=== PATIENT | female | born 1930 | race Caucasian/White ===

== ENCOUNTER 2018-02-18 22:54 | Inpatient (IN) | payer MEDICARE, BC ==
[2018-02-18] MEDS: SUCCINYLCHOLINE CHLORIDE 100 MG/5 ML SYG IV (23:06)
[2018-02-18] MEDS ORDERED: NORepinephrine 8MG/250 ML (PMX 250 ML IV (23:21)
[2018-02-18] MEDS ORDERED: PROPOFOL 100 ML (23:22)
[2018-02-18] MEDS: PROPOFOL 100 ML IV (23:30)
[2018-02-18] MEDS: NORepinephrine 8MG/250 ML (PMX 250 ML IV (23:40)
[2018-02-18 23:47] LABS: WHITE BLOOD COUNT 12.6 10^3/ul (4.8-10.8)
[2018-02-18 23:47] LABS: ABNORMAL IP MESSAGE 1; HEMATOCRIT 32.9 % (37.0-47.0); HEMOGLOBIN 11.2 g/dl (12.0-16.0); MEAN CORPUSCULAR HEMOGLOBIN 31.5 pg (29.0-33.0); MEAN CORPUSCULAR VOLUME 92.4 fl (82.0-101.0); PLATELET COUNT 394 10^3/UL (140-415); RED BLOOD COUNT 3.56 10^6/ul (4.20-5.40); RED CELL DISTRIBUTION WIDTH 13.1 % (11.5-14.5)
[2018-02-18 23:53] LABS: ADD MAN DIFF? YES; MEAN PLATELET VOLUME 9.8 fl (7.4-10.4); POSITIVE DIFF @See below
[2018-02-19] MEDS: SODIUM CHLORIDE 0.9% 1L BAG IV* (00:01)
[2018-02-19] MEDS: CEFEPIME 2GM/50 ML (PMX) 50 ML IVPB (00:01)
[2018-02-19 00:02] LABS: ALANINE AMINOTRANSFERASE 23 IU/L (13-69); ALBUMIN 3.7 g/dl (3.3-4.9); ALBUMIN/GLOBULIN RATIO 0.97; ALKALINE PHOSPHATASE 52 IU/L (42-121); ANION GAP 16 (5-13); ASPARTATE AMINO TRANSFERASE 51 IU/L (15-46); BILIRUBIN,INDIRECT 0.2 mg/dl (0-1.1); BILIRUBIN,TOTAL 0.2 mg/dl (0.2-1.3); BLOOD UREA NITROGEN 18 mg/dl (7-20); CALCIUM 9.5 mg/dl (8.4-10.2); CARBON DIOXIDE 27 mmol/L (21-31); CHLORIDE 89 mmol/L (97-110); CREATININE 0.63 mg/dl (0.44-1.00); GLUCOSE 203 mg/dl (70-220); LIPASE 20 U/L (23-300); POTASSIUM 3.3 mmol/L (3.5-5.1); SODIUM 132 mmol/L (135-144); TOTAL PROTEIN 7.5 g/dl (6.1-8.1)
[2018-02-19 00:03] LABS: INR 1.15; PARTIAL THROMBOPLASTIN TIME 33.2 Sec (23.0-35.0); PROTIME 14.8 Sec (11.9-14.9); PT RATIO 1.2
[2018-02-19] MEDS: PROPOFOL 100 ML IV ×3 (00:06→10:34)
[2018-02-19 00:21] LABS: AADO2 Arterial 463.7 mmHg (7.0-24.0); Allen Test ACCEPTAB; Arterial Base Excess -1.7 mmol/L (-3.0-3); Arterial Blood Gas Oxygen Sat 99.2 mmHG (95.0-100.0); Arterial COHb 0.4 % (0.0-3.0); Arterial Fraction of Oxyhgb 98.5 % (93.0-99.0); Arterial MetHb 0.3 % (0.0-1.5); Arterial pCO2 50.8 mmhg (35-45); MODE VENT - AC; Site Right Radial; TROPONIN-I 0.669 ng/ml (0.000-0.120)
[2018-02-19 00:26] LABS: ANISOCYTOSIS 1+ (0-0); BAND NEUTROPHILS #M 3.1 10^3/ul (0.0-0.6); BAND NEUTROPHILS % (M) 25 % (0-4); ERYTHROBLAST% (NRBC) (M) 1 % (0-0); LYMPHOCYTES % (M) 8 % (15-51); MONOCYTE #M 1.3 10^3/ul (0.3-0.9); MONOCYTES % (M) 11 % (0-11); PLATELET ESTIMATE NORMAL; POLYCHROMASIA 2+ (0-0); SEG NEUT #M 7.4 10^3/ul (1.6-7.5); SEGMENTED NEUTROPHILS (M) % 56 % (39-77); SMUDGE%M 30 % (0-0)
[2018-02-19] MEDS: VANCOMYCIN 1 GM (PMX) 250 ML IVPB (00:53)
[2018-02-19 01:01] LABS: ERYTHROCYTE SEDIMENTATION RATE 100 mm/Hr (0-30)
[2018-02-19 01:07] LABS: ADD UMIC YES; UR AMORPHOUS CRYSTAL MODERATE /HPF (NONE SEEN); UR ASCORBIC ACID 40 mg/dL (NEGATIVE); UR BACTERIA MANY /HPF (NONE SEEN); UR BILIRUBIN (Dip) NEGATIVE (NEGATIVE); UR BLOOD (Dip) 1+ mg/dL (NEGATIVE); UR CLARITY CLOUDY (CLEAR); UR COLOR AMBER (YELLOW); UR GLUCOSE (Dip) 1+ mg/dL (NEGATIVE); UR HYALINE CAST FEW /HPF (NONE SEEN); UR KETONES (Dip) NEGATIVE (NEGATIVE); UR LEUKOCYTE ESTERASE (Dip) NEGATIVE Leu/ul (NEGATIVE); UR MUCUS FEW /HPF (NONE SEEN); UR NITRITE (Dip) NEGATIVE (NEGATIVE); UR RBC 1 /HPF (0-5); UR SPECIFIC GRAVITY (Dip) 1.014 (1.003-1.030); UR SQUAMOUS EPITHELIAL CELL FEW /HPF (FEW); UR TOTAL PROTEIN (Dip) 1+ mg/dl (NEGATIVE); UR UROBILINOGEN (Dip) 2+ mg/dL (NEGATIVE); UR WBC 8 /HPF (0-5)
[2018-02-19] MEDS: MIDAZOLAM 1 MG/ML 2 ML INJ IV (01:30)
[2018-02-19] MEDS ORDERED: ALBUTEROL HFA 8 GM INHALER INH (01:30)
[2018-02-19] MEDS ORDERED: IPRATROPIUM (HFA) 12.9 GM INHALER INH (01:30)
[2018-02-19] MEDS ORDERED: LORAZEPAM 4 MG/ML VIAL IV (01:30)
[2018-02-19] MEDS ORDERED: ONDANSETRON 4 MG INJ IV (01:30)
[2018-02-19 03:53] LABS: LACTIC ACID 1.8 mmol/L (0.5-2.0)
[2018-02-19] MEDS: DEXTROSE 5%-0.45% NACL 1,000 ML IV ×2 (05:41→18:25)
[2018-02-19 06:17] LABS: WHITE BLOOD COUNT 10.2 10^3/ul (4.8-10.8)
[2018-02-19 06:17] LABS: ABNORMAL IP MESSAGE 1; HEMATOCRIT 30.6 % (37.0-47.0); HEMOGLOBIN 10.6 g/dl (12.0-16.0); MEAN CORPUSCULAR HEMOGLOBIN 31.7 pg (29.0-33.0); MEAN CORPUSCULAR HGB CONC 34.6 g/dl (32.0-37.0); MEAN CORPUSCULAR VOLUME 91.6 fl (82.0-101.0); MEAN PLATELET VOLUME 9.7 fl (7.4-10.4); NUCLEATED RED BLOOD CELLS% 0.2 /100WBC (0.0-0.0); PLATELET COUNT 364 10^3/UL (140-415); RED BLOOD COUNT 3.34 10^6/ul (4.20-5.40); RED CELL DISTRIBUTION WIDTH 13.2 % (11.5-14.5)
[2018-02-19 06:37] LABS: CREATINE KINASE 166 IU/L (23-200); POSITIVE DIFF @See below
[2018-02-19 06:39] LABS: ADD MAN DIFF? YES
[2018-02-19 06:50] LABS: ALANINE AMINOTRANSFERASE 31 IU/L (13-69); ALBUMIN 2.9 g/dl (3.3-4.9); ALBUMIN/GLOBULIN RATIO 0.85; ALKALINE PHOSPHATASE 40 IU/L (42-121); ANION GAP 10 (5-13); ASPARTATE AMINO TRANSFERASE 38 IU/L (15-46); BILIRUBIN,INDIRECT 0.1 mg/dl (0-1.1); BILIRUBIN,TOTAL 0.1 mg/dl (0.2-1.3); BLOOD UREA NITROGEN 20 mg/dl (7-20); CALCIUM 8.5 mg/dl (8.4-10.2); CARBON DIOXIDE 27 mmol/L (21-31); CHLORIDE 99 mmol/L (97-110); CK INDEX 2.4; CK-MB 3.98 ng/ml (0.0-2.4); CREATININE 0.59 mg/dl (0.44-1.00); GLUCOSE 128 mg/dl (70-220); POTASSIUM 3.1 mmol/L (3.5-5.1); SODIUM 136 mmol/L (135-144); TOTAL PROTEIN 6.3 g/dl (6.1-8.1)
[2018-02-19 06:57] LABS: TROPONIN-I 0.578 ng/ml (0.000-0.120)
[2018-02-19] MEDS: NORepinephrine 8MG/250 ML (PMX 250 ML IV ×2 (07:09→19:41)
[2018-02-19 07:10] LABS: THYROID STIMULATING HORMONE 0.666 MIU/L (0.465-4.680)
[2018-02-19] MEDS: FAMOTIDINE 20 MG INJ IV (08:25)
[2018-02-19] MEDS: METHIMAZOLE 5 MG TAB PO ×2 (08:26→21:16)
[2018-02-19] MEDS: CEFEPIME 1GM/50 ML (PMX) 50 ML IVPB ×2 (08:26→21:16)
[2018-02-19] MEDS: ENOXAPARIN 40 MG/0.4 ML SYG SC (08:27)
[2018-02-19] MEDS: FENOFIBRATE 145 MG TAB PO (08:28)
[2018-02-19 08:55] LABS: ANISOCYTOSIS 2+ (0-0); BAND NEUTROPHILS #M 4.1 10^3/ul (0.0-0.6); BAND NEUTROPHILS % (M) 41 % (0-4); ERYTHROBLAST% (NRBC) (M) 1 % (0-0); GIANT THROMBO% (M) 4 % (0-0); LYMPHOCYTES #M 1.3 10^3/ul (0.8-2.9); LYMPHOCYTES % (M) 13 % (15-51); METAMYELOCYTES #M 0.7 10^3/ul (0.0-0.0); METAMYELOCYTES %M 7 % (0-0); MONOCYTE #M 0.4 10^3/ul (0.3-0.9); MONOCYTES % (M) 4 % (0-11); MYELOCYTES #M 0.2 10^3/ul (0.0-0.0); MYELOCYTES % (M) 2 % (0-0); PLATELET ESTIMATE NORMAL; POIKILOCYTOSIS 1+ (0-0); POLYCHROMASIA 1+ (0-0); REACTIVE LYMPHOCYTES #M 0.3 10^3/ul (0.0-0.0); REACTIVE LYMPHOCYTES% (M) 3 % (0-0); SEG NEUT #M 3.5 10^3/ul (1.6-7.5); SEGMENTED NEUTROPHILS (M) % 30 % (39-77); SMUDGE%M 4 % (0-0)
[2018-02-19] MEDS: AZITHROMYCIN 500MG/NS (PMX) 250 ML IVPB (10:03)
[2018-02-19] MEDS: POTASSIUM CHLORIDE 20 MEQ POWDER FOR ORAL SOLN NGT (10:34)
[2018-02-19] MEDS ORDERED: POTASSIUM CHLORIDE 50 ML IVPB (12:00)
[2018-02-19] MEDS ORDERED: LORAZEPAM 1 MG TAB GTB (12:04)
[2018-02-19 12:26] LABS: CREATINE KINASE 208 IU/L (23-200)
[2018-02-19] MEDS: ACETAMINOPHEN 650MG/20.3ML CUP PO (12:26)
[2018-02-19] MEDS: ASPIRIN 325 MG TAB PO (12:29)
[2018-02-19 12:37] LABS: MAGNESIUM 1.8 mg/dl (1.7-2.5)
[2018-02-19 12:37] LABS: CK INDEX 1.1; CK-MB 2.36 ng/ml (0.0-2.4)
[2018-02-19 12:39] LABS: TROPONIN-I 0.572 ng/ml (0.000-0.120)
[2018-02-19] MEDS: MAGNESIUM SULFATE 2 GM/50 ML 50 ML IVPB (13:32)
[2018-02-20] MEDS: PROPOFOL 100 ML IV ×3 (02:05→17:20)
[2018-02-20] MEDS: DEXTROSE 5%-0.45% NACL 1,000 ML IV ×3 (02:08→16:23)
[2018-02-20 05:48] LABS: ABNORMAL IP MESSAGE 1; HEMATOCRIT 27.7 % (37.0-47.0); HEMOGLOBIN 9.4 g/dl (12.0-16.0); MEAN CORPUSCULAR HEMOGLOBIN 31.4 pg (29.0-33.0); MEAN CORPUSCULAR HGB CONC 33.9 g/dl (32.0-37.0); MEAN CORPUSCULAR VOLUME 92.6 fl (82.0-101.0); PLATELET COUNT 332 10^3/UL (140-415); RED BLOOD COUNT 2.99 10^6/ul (4.20-5.40); RED CELL DISTRIBUTION WIDTH 13.5 % (11.5-14.5)
[2018-02-20 05:48] LABS: WHITE BLOOD COUNT 15.2 10^3/ul (4.8-10.8)
[2018-02-20 05:53] LABS: POSITIVE DIFF @See below
[2018-02-20 05:54] LABS: ADD MAN DIFF? YES
[2018-02-20 06:11] LABS: ANION GAP 7 (5-13); BLOOD UREA NITROGEN 24 mg/dl (7-20); CALCIUM 8.8 mg/dl (8.4-10.2); CARBON DIOXIDE 28 mmol/L (21-31); CHLORIDE 100 mmol/L (97-110); CREATININE 0.52 mg/dl (0.44-1.00); GLUCOSE 127 mg/dl (70-220); MAGNESIUM 2.5 mg/dl (1.7-2.5); PHOSPHORUS 0.9 mg/dl (2.5-4.9); POTASSIUM 3.6 mmol/L (3.5-5.1); SODIUM 135 mmol/L (135-144)
[2018-02-20 06:28] LABS: CHOLESTEROL 71 mg/dl (100-200)
[2018-02-20 06:28] LABS: CHOL/HDL RATIO 2.8 RATIO; HDL CHOLESTEROL 25 mg/dl (33-92); LDL CHOLESTEROL,CALCULATED 25 mg/dl; TRIGLYCERIDES 106 mg/dl (0-149)
[2018-02-20 07:36] LABS: AADO2 Arterial 539.4 mmHg (7.0-24.0); Allen Test ACCEPTAB; Arterial Base Excess -0.7 mmol/L (-3.0-3); Arterial Blood Gas Oxygen Sat 98.3 mmHG (95.0-100.0); Arterial COHb 0.3 % (0.0-3.0); Arterial Fraction of Oxyhgb 97.7 % (93.0-99.0); Arterial HCO3 25.6 mmol/L (22.0-26.0); Arterial MetHb 0.3 % (0.0-1.5); Arterial pCO2 49.8 mmhg (35-45); MODE VENT - AC; Site Left Radial
[2018-02-20 08:30] LABS: ANISOCYTOSIS 1+ (0-0); BAND NEUTROPHILS #M 4.5 10^3/ul (0.0-0.6); BAND NEUTROPHILS % (M) 30 % (0-4); LYMPHOCYTES #M 0.6 10^3/ul (0.8-2.9); LYMPHOCYTES % (M) 4 % (15-51); MONOCYTE #M 0.3 10^3/ul (0.3-0.9); MONOCYTES % (M) 2 % (0-11); PLATELET ESTIMATE NORMAL; POIKILOCYTOSIS 1+ (0-0); POLYCHROMASIA 1+ (0-0); SEG NEUT #M 10.4 10^3/ul (1.6-7.5); SEGMENTED NEUTROPHILS (M) % 64 % (39-77); SMUDGE%M 1 % (0-0); TOXIC GRANULATION 1+ (0-0)
[2018-02-20] MEDS: CEFEPIME 1GM/50 ML (PMX) 50 ML IVPB ×2 (08:30→21:07)
[2018-02-20] MEDS: METHIMAZOLE 5 MG TAB PO ×2 (08:31→21:09)
[2018-02-20] MEDS: FENOFIBRATE 145 MG TAB PO (08:31)
[2018-02-20] MEDS: FAMOTIDINE 20 MG TAB GTB (08:31)
[2018-02-20] MEDS: ENOXAPARIN 40 MG/0.4 ML SYG SC (08:33)
[2018-02-20 09:06] LABS: CREATINE KINASE 92 IU/L (23-200)
[2018-02-20] MEDS: AZITHROMYCIN 500MG/NS (PMX) 250 ML IVPB (09:13)
[2018-02-20 09:17] LABS: CK INDEX 1.8
[2018-02-20 09:21] LABS: TROPONIN-I 0.134 ng/ml (0.000-0.120)
[2018-02-20 09:37] LABS: CK-MB 1.69 ng/ml (0.0-2.4)
[2018-02-20] MEDS: ACETAMINOPHEN 650MG/20.3ML CUP PO (17:23)
[2018-02-20 18:28] LABS: AADO2 Arterial 597.2 mmHg (7.0-24.0); Allen Test ACCEPTAB; Arterial Base Excess 0.2 mmol/L (-3.0-3); Arterial Blood Gas Oxygen Sat 94.3 mmHG (95.0-100.0); Arterial COHb 0.2 % (0.0-3.0); Arterial Fraction of Oxyhgb 93.6 % (93.0-99.0); Arterial HCO3 25.8 mmol/L (22.0-26.0); Arterial MetHb 0.5 % (0.0-1.5); Arterial pCO2 46.7 mmhg (35-45); MODE VENT - AC; Site Left Radial
[2018-02-20] MEDS: NORepinephrine 8MG/250 ML (PMX 250 ML IV (19:14)
[2018-02-21] MEDS: ACETAMINOPHEN 650MG/20.3ML CUP PO ×2 (00:17→15:57)
[2018-02-21] MEDS: DEXTROSE 5%-0.45% NACL 1,000 ML IV (02:00)
[2018-02-21] MEDS: PROPOFOL 100 ML IV ×3 (07:28→20:43)
[2018-02-21] MEDS ORDERED: ALBUTEROL/IPRATROPIUM (NEB) 3 ML AMP HHN (08:00)
[2018-02-21] MEDS: ALBUTEROL 0.083% (NEB) 2.5 MG/3 ML AMP HHN (08:06)
[2018-02-21] MEDS: ACETYLCYSTEINE 20% 4 ML VIAL NEB (08:07)
[2018-02-21] MEDS: FENOFIBRATE 145 MG TAB PO (09:26)
[2018-02-21] MEDS: METHIMAZOLE 5 MG TAB PO ×2 (09:26→20:26)
[2018-02-21] MEDS: CEFEPIME 1GM/50 ML (PMX) 50 ML IVPB ×2 (09:26→20:31)
[2018-02-21] MEDS: FAMOTIDINE 20 MG TAB GTB (09:26)
[2018-02-21] MEDS: ENOXAPARIN 40 MG/0.4 ML SYG SC (09:27)
[2018-02-21 09:57] LABS: WHITE BLOOD COUNT 20.9 10^3/ul (4.8-10.8)
[2018-02-21 09:57] LABS: HEMATOCRIT 27.2 % (37.0-47.0); HEMOGLOBIN 9.2 g/dl (12.0-16.0); MEAN CORPUSCULAR HEMOGLOBIN 31.5 pg (29.0-33.0); MEAN CORPUSCULAR HGB CONC 33.8 g/dl (32.0-37.0); MEAN CORPUSCULAR VOLUME 93.2 fl (82.0-101.0); MEAN PLATELET VOLUME 9.5 fl (7.4-10.4); PLATELET COUNT 318 10^3/UL (140-415); RED BLOOD COUNT 2.92 10^6/ul (4.20-5.40)
[2018-02-21 10:11] LABS: POSITIVE DIFF @See below
[2018-02-21] MEDS: AZITHROMYCIN 500MG/NS (PMX) 250 ML IVPB (10:11)
[2018-02-21 10:12] LABS: ADD MAN DIFF? YES
[2018-02-21 10:18] LABS: ALANINE AMINOTRANSFERASE 23 IU/L (13-69); ALBUMIN 2.4 g/dl (3.3-4.9); ALBUMIN/GLOBULIN RATIO 0.82; ALKALINE PHOSPHATASE 67 IU/L (42-121); ANION GAP 7 (5-13); ASPARTATE AMINO TRANSFERASE 32 IU/L (15-46); BILIRUBIN,INDIRECT 0.1 mg/dl (0-1.1); BILIRUBIN,TOTAL 0.1 mg/dl (0.2-1.3); BLOOD UREA NITROGEN 23 mg/dl (7-20); CALCIUM 8.7 mg/dl (8.4-10.2); CARBON DIOXIDE 25 mmol/L (21-31); CHLORIDE 101 mmol/L (97-110); CREATININE 0.48 mg/dl (0.44-1.00); GLUCOSE 169 mg/dl (70-220); MAGNESIUM 2.3 mg/dl (1.7-2.5); PHOSPHORUS 1.3 mg/dl (2.5-4.9); POTASSIUM 3.7 mmol/L (3.5-5.1); SODIUM 133 mmol/L (135-144); TOTAL PROTEIN 5.3 g/dl (6.1-8.1)
[2018-02-21 10:49] LABS: AADO2 Arterial 396.8 mmHg (7.0-24.0); Allen Test ACCEPTAB; Arterial Base Excess -3.3 mmol/L (-3.0-3); Arterial Blood Gas Oxygen Sat 84.7 mmHG (95.0-100.0); Arterial COHb 0.3 % (0.0-3.0); Arterial Fraction of Oxyhgb 84.3 % (93.0-99.0); Arterial HCO3 23.4 mmol/L (22.0-26.0); Arterial MetHb 0.2 % (0.0-1.5); Arterial pCO2 49.4 mmhg (35-45); MODE VENT - AC; Site LB
[2018-02-21] MEDS: NORepinephrine 8MG/250 ML (PMX 250 ML IV (12:15)
[2018-02-21 13:01] LABS: ANISOCYTOSIS 1+ (0-0); BAND NEUTROPHILS #M 2.7 10^3/ul (0.0-0.6); BAND NEUTROPHILS % (M) 13 % (0-4); ERYTHROBLAST% (NRBC) (M) 1 % (0-0); LYMPHOCYTES % (M) 10 % (15-51); PLATELET ESTIMATE NORMAL; REACTIVE LYMPHOCYTES #M 0.4 10^3/ul (0.0-0.0); REACTIVE LYMPHOCYTES% (M) 2 % (0-0); SEG NEUT #M 16.2 10^3/ul (1.6-7.5); SEGMENTED NEUTROPHILS (M) % 75 % (39-77); SMUDGE%M 10 % (0-0)
[2018-02-21] MEDS: ALBUTEROL HFA 8 GM INHALER INH ×2 (14:33→19:55)
[2018-02-21] MEDS: IPRATROPIUM (HFA) 12.9 GM INHALER INH ×2 (14:33→19:55)
[2018-02-21 16:20] LABS: AADO2 Arterial 401.4 mmHg (7.0-24.0); Allen Test ACCEPTAB; Arterial Base Excess -3.3 mmol/L (-3.0-3); Arterial Blood Gas Oxygen Sat 88.4 mmHG (95.0-100.0); Arterial COHb 0.4 % (0.0-3.0); Arterial HCO3 22.3 mmol/L (22.0-26.0); Arterial MetHb 0.1 % (0.0-1.5); Arterial pCO2 42.1 mmhg (35-45); MODE VENT - AC; Site LB
[2018-02-21] MEDS: VASOPRESSIN 60 UNIT in DEXTROSE 5% 57 ML IV (16:58)
[2018-02-21] MEDS: FUROSEMIDE 20 MG INJ IV (17:54)
[2018-02-22] MEDS: IPRATROPIUM (HFA) 12.9 GM INHALER INH ×4 (01:03→21:03)
[2018-02-22] MEDS: ALBUTEROL HFA 8 GM INHALER INH ×4 (01:03→21:04)
[2018-02-22] MEDS: VASOPRESSIN 60 UNIT in DEXTROSE 5% 57 ML IV ×2 (04:30→15:22)
[2018-02-22] MEDS: PROPOFOL 100 ML IV ×2 (04:30→15:14)
[2018-02-22] MEDS: NORepinephrine 8MG/250 ML (PMX 250 ML IV ×2 (04:42→20:13)
[2018-02-22 04:53] LABS: WHITE BLOOD COUNT 21.7 10^3/ul (4.8-10.8)
[2018-02-22 04:53] LABS: HEMATOCRIT 25.8 % (37.0-47.0); HEMOGLOBIN 8.8 g/dl (12.0-16.0); MEAN CORPUSCULAR HEMOGLOBIN 31.5 pg (29.0-33.0); MEAN CORPUSCULAR HGB CONC 34.1 g/dl (32.0-37.0); MEAN CORPUSCULAR VOLUME 92.5 fl (82.0-101.0); MEAN PLATELET VOLUME 9.9 fl (7.4-10.4); NUCLEATED RED BLOOD CELLS% 0.1 /100WBC (0.0-0.0); PLATELET COUNT 324 10^3/UL (140-415); RED BLOOD COUNT 2.79 10^6/ul (4.20-5.40); RED CELL DISTRIBUTION WIDTH 14.1 % (11.5-14.5)
[2018-02-22 04:56] LABS: ADD MAN DIFF? YES; POSITIVE DIFF @See below
[2018-02-22 05:32] LABS: ANION GAP 6 (5-13); BLOOD UREA NITROGEN 33 mg/dl (7-20); CALCIUM 9.1 mg/dl (8.4-10.2); CARBON DIOXIDE 25 mmol/L (21-31); CHLORIDE 102 mmol/L (97-110); CREATININE 0.57 mg/dl (0.44-1.00); GLUCOSE 148 mg/dl (70-220); MAGNESIUM 2.3 mg/dl (1.7-2.5); PHOSPHORUS 1.5 mg/dl (2.5-4.9); POTASSIUM 3.9 mmol/L (3.5-5.1); SODIUM 133 mmol/L (135-144)
[2018-02-22] MEDS: SOD CHLORIDE 0.9% 1,000 ML IV (05:36)
[2018-02-22 07:02] LABS: ANISOCYTOSIS 2+ (0-0); BAND NEUTROPHILS #M 4.9 10^3/ul (0.0-0.6); BAND NEUTROPHILS % (M) 23 % (0-4); EOSINOPHILS % (M) 1 % (0-7); LYMPHOCYTES % (M) 5 % (15-51); METAMYELOCYTES #M 0.2 10^3/ul (0.0-0.0); METAMYELOCYTES %M 1 % (0-0); MONOCYTE #M 0.6 10^3/ul (0.3-0.9); MONOCYTES % (M) 3 % (0-11); PLATELET ESTIMATE NORMAL; SEG NEUT #M 15.6 10^3/ul (1.6-7.5); SEGMENTED NEUTROPHILS (M) % 67 % (39-77); SMUDGE%M 3 % (0-0); TOXIC GRANULATION 1+ (0-0)
[2018-02-22 07:26] LABS: AADO2 Arterial 433.6 mmHg (7.0-24.0); Allen Test ACCEPTAB; Arterial Base Excess -1.8 mmol/L (-3.0-3); Arterial Blood Gas Oxygen Sat 90.4 mmHG (95.0-100.0); Arterial COHb 0.2 % (0.0-3.0); Arterial Fraction of Oxyhgb 89.9 % (93.0-99.0); Arterial HCO3 23.5 mmol/L (22.0-26.0); Arterial MetHb 0.3 % (0.0-1.5); Arterial pCO2 41.9 mmhg (35-45); MODE VENT - AC; Site Left Radial
[2018-02-22] MEDS: METHIMAZOLE 5 MG TAB PO ×2 (08:43→20:37)
[2018-02-22] MEDS: CEFEPIME 1GM/50 ML (PMX) 50 ML IVPB ×2 (08:43→20:37)
[2018-02-22] MEDS: FENOFIBRATE 145 MG TAB PO (08:43)
[2018-02-22] MEDS: FAMOTIDINE 20 MG TAB GTB (08:43)
[2018-02-22] MEDS: ENOXAPARIN 40 MG/0.4 ML SYG SC (09:00)
[2018-02-22] MEDS: AZITHROMYCIN 500MG/NS (PMX) 250 ML IVPB (09:27)
[2018-02-22] MEDS: POTASSIUM PHOSPHATE 30 MM in SOD CHLORIDE 0.9% 250 ML IVPB (11:27)
[2018-02-22] MEDS: ACETAMINOPHEN 650MG/20.3ML CUP PO (18:17)
[2018-02-22] MEDS: BALSAM PERU/CASTOR OIL 60 GM TUBE TOP (20:37)
[2018-02-23] MEDS: IPRATROPIUM (HFA) 12.9 GM INHALER INH ×4 (02:00→20:38)
[2018-02-23] MEDS: ALBUTEROL HFA 8 GM INHALER INH ×4 (02:00→20:38)
[2018-02-23] MEDS: PROPOFOL 100 ML IV ×2 (04:00→17:29)
[2018-02-23] MEDS: VASOPRESSIN 60 UNIT in DEXTROSE 5% 57 ML IV ×2 (04:30→15:00)
[2018-02-23 04:59] LABS: WHITE BLOOD COUNT 19.2 10^3/ul (4.8-10.8)
[2018-02-23 04:59] LABS: ABNORMAL IP MESSAGE 1; HEMATOCRIT 23.3 % (37.0-47.0); HEMOGLOBIN 8.1 g/dl (12.0-16.0); MEAN CORPUSCULAR HEMOGLOBIN 31.5 pg (29.0-33.0); MEAN CORPUSCULAR HGB CONC 34.8 g/dl (32.0-37.0); MEAN CORPUSCULAR VOLUME 90.7 fl (82.0-101.0); PLATELET COUNT 311 10^3/UL (140-415); RED BLOOD COUNT 2.57 10^6/ul (4.20-5.40); RED CELL DISTRIBUTION WIDTH 14.3 % (11.5-14.5)
[2018-02-23 05:13] LABS: ADD MAN DIFF? YES; POSITIVE DIFF @See below
[2018-02-23 05:22] LABS: ANION GAP 8 (5-13); BLOOD UREA NITROGEN 42 mg/dl (7-20); CARBON DIOXIDE 24 mmol/L (21-31); CHLORIDE 105 mmol/L (97-110); CREATININE 0.55 mg/dl (0.44-1.00); GLUCOSE 130 mg/dl (70-220); MAGNESIUM 2.3 mg/dl (1.7-2.5); PHOSPHORUS 2.9 mg/dl (2.5-4.9); POTASSIUM 4.2 mmol/L (3.5-5.1); SODIUM 137 mmol/L (135-144)
[2018-02-23 07:16] LABS: AADO2 Arterial 429.4 mmHg (7.0-24.0); Allen Test ACCEPTAB; Arterial Base Excess -1.2 mmol/L (-3.0-3); Arterial Blood Gas Oxygen Sat 91.2 mmHG (95.0-100.0); Arterial COHb 0.3 % (0.0-3.0); Arterial Fraction of Oxyhgb 90.7 % (93.0-99.0); Arterial HCO3 23.7 mmol/L (22.0-26.0); Arterial MetHb 0.2 % (0.0-1.5); Arterial pCO2 40.5 mmhg (35-45); MODE VENT - AC; Site Left Radial
[2018-02-23 07:37] LABS: ANISOCYTOSIS 3+ (0-0); BAND NEUTROPHILS #M 2.4 10^3/ul (0.0-0.6); BAND NEUTROPHILS % (M) 13 % (0-4); LYMPHOCYTES #M 0.7 10^3/ul (0.8-2.9); LYMPHOCYTES % (M) 4 % (15-51); METAMYELOCYTES #M 0.1 10^3/ul (0.0-0.0); METAMYELOCYTES %M 1 % (0-0); MONOCYTE #M 0.5 10^3/ul (0.3-0.9); MONOCYTES % (M) 3 % (0-11); MYELOCYTES #M 0.7 10^3/ul (0.0-0.0); MYELOCYTES % (M) 4 % (0-0); PLATELET ESTIMATE NORMAL; POIKILOCYTOSIS 1+ (0-0); POLYCHROMASIA 1+ (0-0); SEG NEUT #M 14.9 10^3/ul (1.6-7.5); SEGMENTED NEUTROPHILS (M) % 75 % (39-77); SMUDGE%M 2 % (0-0); TOXIC GRANULATION 2+ (0-0)
[2018-02-23] MEDS: CEFEPIME 1GM/50 ML (PMX) 50 ML IVPB ×2 (09:11→20:41)
[2018-02-23] MEDS: FAMOTIDINE 20 MG TAB GTB (09:12)
[2018-02-23] MEDS: METHIMAZOLE 5 MG TAB PO ×2 (09:12→20:42)
[2018-02-23] MEDS: FENOFIBRATE 145 MG TAB PO (09:12)
[2018-02-23] MEDS: ENOXAPARIN 40 MG/0.4 ML SYG SC (09:16)
[2018-02-23] MEDS: FUROSEMIDE 40 MG INJ IV (09:19)
[2018-02-23] MEDS: AZITHROMYCIN 500MG/NS (PMX) 250 ML IVPB (09:19)
[2018-02-23] MEDS: BALSAM PERU/CASTOR OIL 60 GM TUBE TOP ×2 (09:20→20:42)
[2018-02-23] MEDS ORDERED: VANCOMYCIN IV PER PHARMACY XX (09:30)
[2018-02-23] MEDS: ACETAMINOPHEN 650MG/20.3ML CUP PO ×2 (12:25→20:32)
[2018-02-23] MEDS: VANCOMYCIN HCL 1.25 GM in SOD CHLORIDE 0.9% 250 ML IVPB (12:25)
[2018-02-23 20:32] LABS: AADO2 Arterial 454.7 mmHg (7.0-24.0); Allen Test ACCEPTAB; Arterial Base Excess -1.6 mmol/L (-3.0-3); Arterial Blood Gas Oxygen Sat 93.2 mmHG (95.0-100.0); Arterial COHb 0.1 % (0.0-3.0); Arterial Fraction of Oxyhgb 92.7 % (93.0-99.0); Arterial HCO3 23.9 mmol/L (22.0-26.0); Arterial MetHb 0.4 % (0.0-1.5); Arterial pCO2 43.7 mmhg (35-45); MODE VENT - AC; Site Right Radial
[2018-02-24] MEDS: ALBUTEROL HFA 8 GM INHALER INH ×4 (02:00→19:51)
[2018-02-24] MEDS: IPRATROPIUM (HFA) 12.9 GM INHALER INH ×4 (02:00→19:51)
[2018-02-24] MEDS: VASOPRESSIN 60 UNIT in DEXTROSE 5% 57 ML IV ×2 (04:30→16:30)
[2018-02-24 04:46] LABS: WHITE BLOOD COUNT 16.4 10^3/ul (4.8-10.8)
[2018-02-24 04:46] LABS: ABNORMAL IP MESSAGE 1; HEMATOCRIT 23.4 % (37.0-47.0); MEAN CORPUSCULAR HEMOGLOBIN 31.9 pg (29.0-33.0); MEAN CORPUSCULAR HGB CONC 34.2 g/dl (32.0-37.0); MEAN CORPUSCULAR VOLUME 93.2 fl (82.0-101.0); MEAN PLATELET VOLUME 9.8 fl (7.4-10.4); PLATELET COUNT 308 10^3/UL (140-415); RED BLOOD COUNT 2.51 10^6/ul (4.20-5.40); RED CELL DISTRIBUTION WIDTH 14.6 % (11.5-14.5)
[2018-02-24 04:51] LABS: ADD MAN DIFF? YES; POSITIVE DIFF @See below
[2018-02-24 05:03] LABS: ANION GAP 8 (5-13); BLOOD UREA NITROGEN 58 mg/dl (7-20); CALCIUM 9.7 mg/dl (8.4-10.2); CARBON DIOXIDE 25 mmol/L (21-31); CHLORIDE 106 mmol/L (97-110); CREATININE 0.68 mg/dl (0.44-1.00); GLUCOSE 121 mg/dl (70-220); MAGNESIUM 2.5 mg/dl (1.7-2.5); PHOSPHORUS 3.4 mg/dl (2.5-4.9); POTASSIUM 4.7 mmol/L (3.5-5.1); SODIUM 139 mmol/L (135-144)
[2018-02-24] MEDS: PROPOFOL 100 ML IV ×2 (05:44→21:43)
[2018-02-24 08:29] LABS: ANISOCYTOSIS 1+ (0-0); BAND NEUTROPHILS #M 0.4 10^3/ul (0.0-0.6); BAND NEUTROPHILS % (M) 3 % (0-4); BURR CELLS 1+ (0-0); EOSINOPHILS % (M) 2 % (0-7); LYMPHOCYTES #M 1.6 10^3/ul (0.8-2.9); LYMPHOCYTES % (M) 10 % (15-51); MONOCYTE #M 0.8 10^3/ul (0.3-0.9); MONOCYTES % (M) 5 % (0-11); MYELOCYTES #M 0.1 10^3/ul (0.0-0.0); MYELOCYTES % (M) 1 % (0-0); PLATELET ESTIMATE NORMAL; POIKILOCYTOSIS 1+ (0-0); POLYCHROMASIA 1+ (0-0); SEGMENTED NEUTROPHILS (M) % 79 % (39-77); SMUDGE%M 86 % (0-0); TOXIC GRANULATION 1+ (0-0)
[2018-02-24] MEDS: BALSAM PERU/CASTOR OIL 60 GM TUBE TOP ×2 (08:40→21:44)
[2018-02-24] MEDS: CEFEPIME 1GM/50 ML (PMX) 50 ML IVPB ×2 (08:40→21:43)
[2018-02-24] MEDS: METHIMAZOLE 5 MG TAB PO ×2 (08:41→21:44)
[2018-02-24] MEDS: FAMOTIDINE 20 MG TAB GTB (08:41)
[2018-02-24] MEDS: FENOFIBRATE 145 MG TAB PO (08:41)
[2018-02-24] MEDS: ENOXAPARIN 40 MG/0.4 ML SYG SC (08:42)
[2018-02-24] MEDS: AZITHROMYCIN 500MG/NS (PMX) 250 ML IVPB (09:34)
[2018-02-24] MEDS: FUROSEMIDE 40 MG INJ IV (11:05)
[2018-02-24] MEDS: VANCOMYCIN HCL 1.25 GM in SOD CHLORIDE 0.9% 250 ML IVPB (12:15)
[2018-02-24] MEDS: NORepinephrine 8MG/250 ML (PMX 250 ML IV (14:52)
[2018-02-25] MEDS: ALBUTEROL HFA 8 GM INHALER INH ×4 (01:20→19:48)
[2018-02-25] MEDS: IPRATROPIUM (HFA) 12.9 GM INHALER INH ×4 (01:20→19:48)
[2018-02-25] MEDS: VASOPRESSIN 60 UNIT in DEXTROSE 5% 57 ML IV ×2 (04:30→16:29)
[2018-02-25 04:55] LABS: WHITE BLOOD COUNT 17.7 10^3/ul (4.8-10.8)
[2018-02-25 04:55] LABS: ABNORMAL IP MESSAGE 1; HEMOGLOBIN 7.5 g/dl (12.0-16.0); MEAN CORPUSCULAR HEMOGLOBIN 32.3 pg (29.0-33.0); MEAN CORPUSCULAR HGB CONC 34.1 g/dl (32.0-37.0); MEAN CORPUSCULAR VOLUME 94.8 fl (82.0-101.0); MEAN PLATELET VOLUME 10.4 fl (7.4-10.4); NUCLEATED RED BLOOD CELLS% 0.1 /100WBC (0.0-0.0); PLATELET COUNT 303 10^3/UL (140-415); RED BLOOD COUNT 2.32 10^6/ul (4.20-5.40); RED CELL DISTRIBUTION WIDTH 14.9 % (11.5-14.5)
[2018-02-25 05:02] LABS: ADD MAN DIFF? YES; POSITIVE DIFF @See below
[2018-02-25 05:19] LABS: ANION GAP 4 (5-13); BLOOD UREA NITROGEN 75 mg/dl (7-20); CALCIUM 9.9 mg/dl (8.4-10.2); CARBON DIOXIDE 25 mmol/L (21-31); CHLORIDE 109 mmol/L (97-110); CREATININE 0.83 mg/dl (0.44-1.00); GLUCOSE 143 mg/dl (70-220); MAGNESIUM 2.6 mg/dl (1.7-2.5); PHOSPHORUS 3.7 mg/dl (2.5-4.9); POTASSIUM 4.8 mmol/L (3.5-5.1); SODIUM 138 mmol/L (135-144)
[2018-02-25 08:00] LABS: ANISOCYTOSIS 2+ (0-0); EOSINOPHILS % (M) 2 % (0-7); LYMPHOCYTES #M 0.7 10^3/ul (0.8-2.9); LYMPHOCYTES % (M) 4 % (15-51); METAMYELOCYTES #M 0.1 10^3/ul (0.0-0.0); METAMYELOCYTES %M 1 % (0-0); MONOCYTES % (M) 6 % (0-11); PLATELET ESTIMATE NORMAL; POLYCHROMASIA 1+ (0-0); SEGMENTED NEUTROPHILS (M) % 87 % (39-77); SMUDGE%M 9 % (0-0); TOXIC GRANULATION 1+ (0-0)
[2018-02-25] MEDS: CEFEPIME 1GM/50 ML (PMX) 50 ML IVPB ×2 (08:49→20:32)
[2018-02-25] MEDS: FAMOTIDINE 20 MG TAB GTB (08:51)
[2018-02-25] MEDS: METHIMAZOLE 5 MG TAB PO ×2 (08:51→20:32)
[2018-02-25] MEDS: FENOFIBRATE 145 MG TAB PO (08:51)
[2018-02-25] MEDS: ENOXAPARIN 40 MG/0.4 ML SYG SC (08:52)
[2018-02-25] MEDS: AZITHROMYCIN 500MG/NS (PMX) 250 ML IVPB (09:52)
[2018-02-25] MEDS: BALSAM PERU/CASTOR OIL 60 GM TUBE TOP ×2 (09:52→20:32)
[2018-02-25] MEDS: FUROSEMIDE 100 MG INJ IV ×2 (09:52→17:47)
[2018-02-25] MEDS: ACETAMINOPHEN 650MG/20.3ML CUP PO (11:59)
[2018-02-25] MEDS: PROPOFOL 100 ML IV ×2 (12:27→20:54)
[2018-02-25 13:11] LABS: VANCOMYCIN,TROUGH 17.3 ug/ml (10.0-20.0)
[2018-02-25] MEDS: VANCOMYCIN 750 MG (PMX) 250 ML IVPB (14:52)
[2018-02-25] MEDS: NORepinephrine 8MG/250 ML (PMX 250 ML IV (20:54)
[2018-02-26] MEDS: ALBUTEROL HFA 8 GM INHALER INH (01:00)
[2018-02-26] MEDS: IPRATROPIUM (HFA) 12.9 GM INHALER INH (01:00)
[2018-02-26] MEDS: VASOPRESSIN 60 UNIT in DEXTROSE 5% 57 ML IV (04:30)
[2018-02-26 05:24] LABS: ADD MAN DIFF? NO
[2018-02-26 05:28] LABS: BASOPHILS % 0.2 % (0.0-2.0); EOSINOPHILS # 0.1 10^3/ul (0.0-0.5); EOSINOPHILS % 0.6 % (0.0-7.0); HEMATOCRIT 21.8 % (37.0-47.0); HEMOGLOBIN 7.3 g/dl (12.0-16.0); LYMPHOCYTES # 0.6 10^3/ul (0.8-2.9); LYMPHOCYTES % 3.5 % (15.0-51.0); MEAN CORPUSCULAR HEMOGLOBIN 32.2 pg (29.0-33.0); MEAN CORPUSCULAR HGB CONC 33.5 g/dl (32.0-37.0); MEAN PLATELET VOLUME 10.7 fl (7.4-10.4); MONOCYTE # 0.8 10^3/ul (0.3-0.9); MONOCYTES % 4.3 % (0.0-11.0); NEUTROPHIL # 15.6 10^3/ul (1.6-7.5); NEUTROPHILS % 86.9 % (39.0-77.0); PLATELET COUNT 278 10^3/UL (140-415); RED BLOOD COUNT 2.27 10^6/ul (4.20-5.40); RED CELL DISTRIBUTION WIDTH 15.3 % (11.5-14.5)
[2018-02-26 05:28] LABS: WHITE BLOOD COUNT 17.9 10^3/ul (4.8-10.8)
[2018-02-26 05:53] LABS: ANION GAP 9 (5-13); BLOOD UREA NITROGEN 92 mg/dl (7-20); CALCIUM 9.7 mg/dl (8.4-10.2); CARBON DIOXIDE 26 mmol/L (21-31); CHLORIDE 107 mmol/L (97-110); CREATININE 0.86 mg/dl (0.44-1.00); GLUCOSE 138 mg/dl (70-220); MAGNESIUM 2.5 mg/dl (1.7-2.5); POTASSIUM 4.8 mmol/L (3.5-5.1); SODIUM 142 mmol/L (135-144)
[2018-02-26] MEDS: FUROSEMIDE 100 MG INJ IV (06:00)
[2018-02-26 06:01] LABS: CK-MB 0.48 ng/ml (0.0-2.4); TROPONIN-I 0.026 ng/ml (0.000-0.120)
[2018-02-26 06:04] LABS: CREATINE KINASE < 20 IU/L (23-200)
[2018-02-26] MEDS ORDERED: ATROPINE 1% 5 ML OPH SL (07:30)
[2018-02-26] MEDS ORDERED: NS + KCL 30 MEQ 1,000 ML IV (07:58)
[2018-02-26] MEDS ORDERED: morphine (DRIP) 100 MG/100 ML 100 ML IV (08:00)
[2018-02-26] MEDS: morphine (DRIP) 100 MG/100 ML 100 ML IV (08:15)
[2018-02-28 13:12] LABS: PROCALCITONIN 1.65 ng/mL (<0.10)
== END 2018-02-26 09:37 | disposition expired | DRG 870 ==
LOC: E/R 22:54 → ICU 02-19 01:38
PROC: 02HV33Z Insertion of Infusion Device into Superior Vena Cava, Percutaneous Approach (ICD-10-PCS; principal; 2018-02-18)
PROC: 5A1955Z Respiratory Ventilation, Greater than 96 Consecutive Hours (ICD-10-PCS; 2018-02-18)
PROC: 0BH18EZ Insertion of Endotracheal Airway into Trachea, Via Natural or Artificial Opening Endoscopic (ICD-10-PCS; 2018-02-18)
PROC: 0BH17EZ Insertion of Endotracheal Airway into Trachea, Via Natural or Artificial Opening (ICD-10-PCS; 2018-02-20)
DX: A41.9 Sepsis, unspecified organism (principal); J96.01 Acute respiratory failure with hypoxia; J18.9 Pneumonia, unspecified organism; I21.A1 Myocardial infarction type 2; R65.21 Severe sepsis with septic shock; J96.02 Acute respiratory failure with hypercapnia; J44.0 Chronic obstructive pulmonary disease with (acute) lower respiratory infection; J44.1 Chronic obstructive pulmonary disease with (acute) exacerbation; J95.812 Postprocedural air leak; I45.4 Nonspecific intraventricular block; I10 Essential (primary) hypertension; E05.90 Thyrotoxicosis, unspecified without thyrotoxic crisis or storm; D64.9 Anemia, unspecified; E78.5 Hyperlipidemia, unspecified; Y84.8 Other medical procedures as the cause of abnormal reaction of the patient, or of later complication, without mention of misadventure at the time of the procedure; Y92.238 Other place in hospital as the place of occurrence of the external cause; Z51.5 Encounter for palliative care
CPT/HCPCS: 31500; 36415; 36600; 71045; 80048; 80053; 80061; 80202; 81001; 82550; 82553; 82803; 83605; 83690; 83735; 84100; 84145; 84439; 84443; 84484; 85025; 85610; 85651; 85730; 86140; 87040; 87070; 87081; 87086; 87400; 93005; 93306; 94002; 94003; 94640; 94664; 94770; 96365; 96375; 99291-25